=== PATIENT | female | born 1985 | race Caucasian/White ===

== ENCOUNTER 2016-05-15 14:17 | Emergency (ER) | payer OTHER ==
[2016-05-15] MEDS ORDERED: NS 0.9% 1000 ML* 2,500 ML IV ONE (15:04)
[2016-05-15] MEDS ORDERED: Ketorolac INJ* 30 MG/ML 1 ML VIAL IV PUSH ONE (15:12)
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
[2016-05-15] MEDS ORDERED: clonazePAM TAB(*) 1 MG PO ONE (15:40)
[2016-05-15 15:45] LABS: Hematocrit 41 % (35-47); Mean Corpuscular HGB Conc 34 g/dl (31-36); Mean Corpuscular Hemoglobin 30 pg (27-31); Mean Corpuscular Volume 87 fL (80-97); Mean Platelet Volume 7 um3 (7.4-10.4); Red Blood Count 4.66 10^6/ul (4.0-5.4); Red Cell Distribution Width 13 % (10.5-15); White Blood Count 12.6 10^3/ul (3.5-10.8)
--- NOTE | 2016-05-15 15:53 | RAD ---
HISTORY: Cough COMPARISONS: February 13, 2015 VIEWS: 2: Frontal dual-energy and lateral views of the chest. FINDINGS: CARDIOMEDIASTINAL SILHOUETTE: The cardiomediastinal silhouette is normal. PAUL: The paul are normal. PLEURA: The costophrenic angles are sharp. No pleural abnormalities are noted. LUNG PARENCHYMA: The lungs are clear. ABDOMEN: The upper abdomen is clear. There is no subphrenic gas. BONES AND SOFT TISSUES: No bone or soft tissue abnormalities are noted. OTHER: None. IMPRESSION: NO ACTIVE CARDIOPULMONARY DISEASE.
[2016-05-15] MEDS ORDERED: Clindamycin 600 MG IVPREMIX(* 600 MG/50 ML SDV IV ONE (15:54)
[2016-05-15] MEDS ORDERED: Bacitracin OINTMENT* 1 TUBE TOPICAL ONE (15:55)
[2016-05-15 15:58] LABS: ALT 11 U/L (7-52); AST 12 U/L (13-39); Albumin 4.7 g/dL (3.2-5.2); Alkaline Phosphatase 84 U/L (34-104); Anion Gap 9 mmol/L (2-11); BUN/Creatinine Ratio 14.6 (8-20); Blood Urea Nitrogen 12 mg/dL (6-24); CO2 Carbon Dioxide 27 mmol/L (22-32); Calcium 9.6 mg/dL (8.6-10.3); Chloride 104 mmol/L (101-111); EGFR Non-African American 82.4 (>60); Globulin 3.6 g/dL (2-4); Glucose 89 mg/dL (70-100); Potassium 3.2 mmol/L (3.5-5.0); Sodium 140 mmol/L (133-145); Total Protein 8.3 g/dL (6.4-8.9)
[2016-05-15] MEDS ORDERED: clonazePAM TAB(*) 0.5 MG PO ONE (16:30)
[2016-05-15] MEDS ORDERED: oxyCODONE/Acetamin 5/325 MG* TAB PO ONE ×2 (17:17→18:39)
[2016-05-15] MEDS ORDERED: oxyCODONE/Acetamin 5/325 MG* TAB ONE (18:41)
[2016-05-15 22:10] VITALS: BP 118/79
== END 2016-05-15 18:44 | disposition home or self-care (01) ==
LOC: ED 14:17
DX: T22.012A Burn of unspecified degree of left forearm, initial encounter (principal); R19.7 Diarrhea, unspecified; R10.13 Epigastric pain; F31.9 Bipolar disorder, unspecified; X10.2XXA Contact with fats and cooking oils, initial encounter; Y93.G3 Activity, cooking and baking; Y92.9 Unspecified place or not applicable; F17.210 Nicotine dependence, cigarettes, uncomplicated
CPT/HCPCS: 36415; 71020; 80053; 83605; 84702; 85025; 87040; 87070; 87205; 87502; A9270-GY; J1885

== ENCOUNTER 2016-06-08 09:34 | Observation (INO) | payer OTHER ==
[2016-06-08] MEDS ORDERED: Ondansetron ODT TAB* 4 MG PO ONE (11:12)
[2016-06-08] MEDS ORDERED: NS 0.9% 1000 ML* 1,000 ML IV ONE ×2 (11:12→14:42)
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
--- NOTE | 2016-06-08 11:47 | RAD ---
HISTORY: Fall, head injury, contusion COMPARISONS: October 17, 2015 TECHNIQUE: Multiple contiguous axial CT scans were obtained of the head without intravenous contrast. FINDINGS: HEMORRHAGE/INFARCT: There is no hemorrhage or acute infarct. MASSES/SHIFT: There is no mass or shift. EXTRA-AXIAL SPACES: There are no extra-axial fluid collections. SULCI AND VENTRICLES: The sulci and ventricles are normal in size and position for the patient's stated age. CEREBRUM: There are no focal parenchymal abnormalities. BRAINSTEM: There are no focal parenchymal abnormalities. CEREBELLUM: There are no focal parenchymal abnormalities. VESSELS: The vessels are grossly normal. PARANASAL SINUSES: The paranasal sinuses are clear. ORBITS: The orbits are unremarkable. BONES AND SOFT TISSUE: No bone or soft tissue abnormalities are noted. OTHER: None IMPRESSION: NO ACUTE INTRACRANIAL PATHOLOGY.
[2016-06-08 11:54] LABS: Urine Bacteria Absent (Absent); Urine Bilirubin Negative (Negative); Urine Glucose Negative (Negative); Urine Nitrite Negative (Negative)
[2016-06-08 12:03] LABS: Benzodiazepine Urine Screen Presumptive Positive (None Detect)
[2016-06-08] MEDS ORDERED: Ketorolac INJ* 30 MG/ML 1 ML VIAL IV PUSH ONE ×2 (12:42→19:41)
[2016-06-08 13:08] LABS: Hematocrit 40 % (35-47); Hemoglobin 13.7 g/dl (12.0-16.0); Mean Corpuscular HGB Conc 35 g/dl (31-36); Mean Corpuscular Hemoglobin 31 pg (27-31); Mean Corpuscular Volume 89 fL (80-97); Mean Platelet Volume 8 um3 (7.4-10.4); Red Blood Count 4.47 10^6/ul (4.0-5.4); Red Cell Distribution Width 13 % (10.5-15); White Blood Count 9.1 10^3/ul (3.5-10.8)
[2016-06-08 13:30] LABS: Alcohol < 10 mg/dL (<10)
[2016-06-08 13:38] LABS: Albumin 4.3 g/dL (3.2-5.2); BUN/Creatinine Ratio 12.8 (8-20); Calcium 9.3 mg/dL (8.6-10.3); EGFR African American 112.3 (>60); EGFR Non-African American 87.3 (>60); Magnesium 2.4 mg/dL (1.9-2.7); Potassium 3.9 mmol/L (3.5-5.0); Total Bilirubin 0.6 mg/dL (0.2-1.0); Total Protein 7.3 g/dL (6.4-8.9)
[2016-06-08] MEDS ORDERED: Acetaminophen TAB* 325 MG PO ONE (15:38)
[2016-06-08] MEDS ORDERED: Acetaminophen TAB* 325 MG PO PRN (16:20)
[2016-06-08] MEDS ORDERED: HYDROmorphone* 1 MG/ML 1 ML SYR IV SLOW PU ONE (16:24)
[2016-06-08] MEDS ORDERED: NS 0.9% 1000 ML* 1,000 ML IV SCH (16:30)
[2016-06-08] MEDS: Gabapentin CAP(*) 300 MG PO SCH ×2 (16:37→21:00)
[2016-06-08] MEDS: Amphetamine/Dextroamph ER(NF) 10 MG CAP.ER PO SCH (17:00)
[2016-06-08] MEDS: clonazePAM TAB(*) 1 MG PO SCH ×2 (17:00→20:51)
[2016-06-08] MEDS ORDERED: clonazePAM TAB(*) 1 MG ONE (17:00)
[2016-06-08] MEDS ORDERED: LORazepam INJ* 2 MG/ML 1 ML VIAL IV PUSH ONE (18:12)
[2016-06-08] MEDS: FLUoxetine CAP* 10 MG PO SCH (20:15)
[2016-06-08] MEDS: oxyCODONE/Acetamin 5/325 MG* TAB PO PRN (22:17)
[2016-06-08] MEDS ORDERED: Zolpidem TAB* 10 MG PO PRN (23:34)
[2016-06-08] MEDS ORDERED: clonazePAM TAB(*) 1 MG PO ONE (23:35)
[2016-06-09] MEDS: Bacitracin OINTMENT* 1 TUBE TOPICAL SCH ×2 (00:27→08:29)
[2016-06-09] MEDS: oxyCODONE/Acetamin 5/325 MG* TAB PO PRN ×3 (02:14→10:17)
[2016-06-09] MEDS: LORazepam INJ* 2 MG/ML 1 ML VIAL IV PUSH PRN ×3 (02:29→10:18)
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
[2016-06-09 04:33] LABS: Hematocrit 36 % (35-47); Hemoglobin 12.3 g/dl (12.0-16.0); Mean Corpuscular HGB Conc 34 g/dl (31-36); Mean Corpuscular Hemoglobin 30 pg (27-31); Mean Corpuscular Volume 89 fL (80-97); Mean Platelet Volume 8 um3 (7.4-10.4); Red Blood Count 4.07 10^6/ul (4.0-5.4); Red Cell Distribution Width 13 % (10.5-15); White Blood Count 10.1 10^3/ul (3.5-10.8)
[2016-06-09 04:47] LABS: BUN/Creatinine Ratio 12.3 (8-20); Calcium 8.1 mg/dL (8.6-10.3); EGFR African American 107.5 (>60); EGFR Non-African American 83.6 (>60); Potassium 3.9 mmol/L (3.5-5.0)
[2016-06-09] MEDS: Gabapentin CAP(*) 300 MG PO SCH (08:21)
[2016-06-09] MEDS: clonazePAM TAB(*) 1 MG PO SCH (08:22)
[2016-06-09] MEDS: FLUoxetine CAP* 10 MG PO SCH (08:23)
[2016-06-09] MEDS: Amphetamine/Dextroamph ER(NF) 10 MG CAP.ER PO SCH (08:24)
[2016-06-09 09:05] VITALS: BP 110/57
--- NOTE | 2016-06-09 10:40 | ECHO ---
Patient: SYDNEY SAMAYOA [facility] Rec#: [id number] : 1985 Date: 06/09/2016 Age: 31y Height: 157.48 cm / 62.0 in Weight: 81.65 kg / 180.0 lbs Sex: F BSA: 1.83 Room#: 431 Admit Date#: 06/08/2016 Type: Inpatient Referring: Kyler Mendoza NP Reading: Lopez Grimm MD Hospice Chaplain: Comfort Lizama RDCS,RDMS CC: Aries Lawson MD Transthoracic Echocardiogram Indication: Sycope BP: 106/51 HR: 59 Rhythm: Bradycardia Indications Syncope Findings History: Smoker, former drug use. Technical Comments: The study quality is good. Left Ventricle: The left ventricular chamber size is normal. There is no left ventricular hypertrophy. Global left ventricular wall motion and contractility are within normal limits. The estimated ejection fraction is 55-60%. Normal left ventricular diastolic filling is observed. Left Atrium: The left atrial chamber size is normal. Right Ventricle: The right ventricular chamber size and systolic function are within normal limits. Right Atrium: The right atrial cavity size is normal. Aortic Valve: The aortic valve is trileaflet. There is no evidence of aortic valve thickening. There is a trace of aortic regurgitation. There is no evidence of aortic stenosis. Mitral Valve: The mitral valve leaflets appear normal. There is a trace of mitral regurgitation. There is no evidence of mitral stenosis. Tricuspid Valve: The tricuspid valve leaflets are normal. There is trace tricuspid regurgitation. Unable to estimate the right ventricular systolic pressure. Pulmonic Valve: There is no evidence of pulmonic valve thickening. There is trace to mild pulmonic regurgitation. Pericardium: There is no significant pericardial effusion. Aorta: The aortic root appears normal. There is no dilatation of the aortic arch. Pulmonary Artery: The main pulmonary artery is not well visualized. Venous: The inferior vena cava appears normal in size. There is a greater than 50% respiratory change in the inferior vena cava dimension. Conclusions Global left ventricular wall motion and contractility are within normal limits. The estimated ejection fraction is 55-60%. Normal left ventricular diastolic filling is observed. No significant valvular disease: There is a trace of mitral regurgitation. There is trace tricuspid regurgitation. There is trace to mild pulmonic regurgitation. No reports of prior studies offered for comparson. Measurements Name Value Normal Range RVIDd (AP) 2D 2.8 cm (0.9 - 2.6) RVDdMajor (2D) 3 cm (2.2 - 4.4) RAd ISD 4CH 4.5 cm (3.4 - 4.9) RA (A4C)W 3.8 cm (2.9 - 4.6) IVSd (2D) 1 cm (0.6 - 1) LVPWd (2D) 1 cm (0.6 - 1) LVIDd (2D) 4.4 cm (3.6 - 5.4) LVIDs (2D) 3.1 cm - LV FS (2D) 31 % (25 - 45) Aortic Annulus 2.1 cm (1.4 - 2.6) Ao root diameter (2D) 2.7 cm (2.1 - 3.5) Ascending Ao 2.9 cm (2.1 - 3.4) Aortic arch 2.5 cm (1.8 - 3.4) LA dimension (AP) 2D 3.7 cm (2.3 - 3.8) LAd ISD 4CH 4.8 cm (2.9 - 5.3) LA ISD 4CH W 4.4 cm (2.5 - 4.5) Name Value Normal Range LA ESV SP 4CH (A/L) 65.49 ml - LA ESV SP 2CH (A/L) 56.74 ml - LA ESV BP (A/L) 61.37 ml - LA ESV BP (A/L) index 33.5 ml/m2 - LA ESV SP 4CH (MOD) 60.3 ml - LA ESV SP 2CH (MOD) 54.19 ml - Name Value Normal Range MV E-wave Vmax 1 m/sec - MV deceleration time 200 msec - MV A-wave Vmax 0.4 m/sec - MV E:A ratio 2.3 ratio - P. vein S-wave Vmax 0.5 m/sec - P. vein D-wave Vmax 0.5 m/sec - P. vein A-wave duration 111 msec - LV lateral e' Vmax 0.14 m/sec - LV E:e' lateral ratio 7 ratio - Name Value Normal Range AV Vmax 1.6 m/sec - AV VTI 32.7 cm - AV peak gradient 10 mmHg - AV mean gradient 4.7 mmHg - LVOT Vmax 1.3 m/sec - LVOT VTI 29 cm - LVOT peak gradient 7 mmHg - LVOT mean gradient 3.1 mmHg - DUONG Vmax 1.2 m/sec - Name Value Normal Range RAP 8 mmHg - IVC diameter 1.6 cm - Name Value Normal Range PV Vmax 0.7 m/sec - PV peak gradient 2 mmHg -
[2016-06-09] MEDS ORDERED: HYDROmorphone* 1 MG/ML 1 ML SYR IV SLOW PU ONE ×2 (11:05→12:42)
--- NOTE | 2016-06-10 02:48 | DS ---
DISCHARGE SUMMARY: DATE OF ADMISSION: 06/08/16 DATE OF DISCHARGE: 06/09/16 PRIMARY CARE PROVIDER: Aries Lawson MD DISCHARGING PROVIDER: CLARKE Whitten SUPERVISING PHYSICIAN: Jolanta Bedoya MD* (dictated by CLARKE Whitten) PRIMARY DISCHARGE DIAGNOSES: 1. Syncope. 2. Closed head injury with postconcussive syndrome. 3. Prolonged QT interval. SECONDARY DISCHARGE DIAGNOSES: 1. Bipolar disorder. 2. Anxiety and depression. 3. Posttraumatic stress disorder. DISCHARGE MEDICATIONS: 1. Adderall 30 mg 1 capsule p.o. daily. 2. Fluoxetine 20 mg p.o. daily. 3. Gabapentin 600 mg p.o. t.i.d. 4. Loperamide 2 mg p.o. daily as needed for diarrhea. 5. Sudafed 30 mg p.o. q.6 hours as needed for congestion. 6. Klonopin 2 mg p.o. 3 times daily. MEDICATION CHANGES: 1. Stop clonidine. 2. Stop Seroquel. HOSPITAL IMAGIN. CT of the brain shows no acute process. 2. Echocardiogram is essentially within normal limits. Ejection fraction estimated at 55% to 60% with no significant valvular process. 3. EKG shows sinus rhythm initially with QTc of 531 milliseconds. Repeat EKG morning of discharge showed improvement at 485 milliseconds. HOSPITAL COURSE: This is a 31-year-old female with an extensive psychiatric history including bipolar disorder, anxiety, and depression as well as a history of substance abuse who has been reportedly clean for several years who presented to the emergency department after a fall which resulted due to a syncopal episode. The syncope occurred nearly 2 days prior to the time that she came to the emergency department, but she had been having continued headaches and some confusion since the time of her injury which is what concerned her to the point that she sought evaluation in the emergency department. The patient reported that she had been started on both clonidine and Seroquel by her psychiatrist and the dose of the clonidine had been increased to 0.2 mg 3 times daily. The patient had been having dizzy episodes and at one point, she stood up, remembers feeling lightheaded and woke up on the floor. She sustained a superficial abrasion to her forehead. Since that time, she has been having difficulty with headaches and some confusion. No further syncopal episode. She stopped taking her clonidine and Seroquel at that time. When she reached the emergency department, her initial EKG showed a sinus rhythm , but a prolonged QTc measured at [address] of her brain was completed, which was unremarkable and her initial labs were benign. The patient was subsequently admitted to an observation state with continued telemetry monitoring and an echocardiogram. Telemetry monitoring overnight demonstrated a sinus rhythm with rate in the 60s and 70s primarily. No dysrhythmias. Repeat EKG the following morning showed improvement of her QTc to 485 milliseconds. Echocardiogram was completed, which showed no congenital heart disease. Orthostatic vital signs were also completed, which were within normal limits. The patient was complaining of continued headache and some confusion at the time of discharge. I explained the patient that her symptoms are likely due to a postconcussive syndrome and she will likely have headaches, some dizziness, possible mood swings, and intermittent nausea for up to several weeks after her concussion. She is advised to limit activities that would expose her to recurrent head injury and if at all possible engage in a period of cognitive rest. The patient is being discharged to home, where she lives with her 2 children. Recommend not restarting her clonidine and Seroquel and follow up closely with her psychiatrist regarding this hospitalization. CLARKE WHITTEN CC: Dr. Lawson* [id number]/[facility] #: [id number] EDDY
== END 2016-06-09 13:30 | disposition home or self-care (01) ==
LOC: ED 09:34 → MEDTELE 16:18
PROVIDERS: ADMIT Internal Medicine; ATTEND Internal Medicine
DX: R55 Syncope and collapse (principal); S09.90XA Unspecified injury of head, initial encounter; W18.39XA Other fall on same level, initial encounter; Y92.9 Unspecified place or not applicable; F07.81 Postconcussional syndrome; G44.309 Post-traumatic headache, unspecified, not intractable; I45.81 Long QT syndrome; F31.9 Bipolar disorder, unspecified; F41.9 Anxiety disorder, unspecified; F43.10 Post-traumatic stress disorder, unspecified; R00.1 Bradycardia, unspecified; Z79.899 Other long term (current) drug therapy; F17.210 Nicotine dependence, cigarettes, uncomplicated
CPT/HCPCS: 36415; 70450; 80048; 80053; 80307; 80320; 81003; 81015; 83605; 83735; 84443; 84484; 85025; 93005; 93306; 94760; 96361; 96374; 96375; 96376; 99284; A9270-GY; G0378; G0480; J1170; J1885; J2060

== ENCOUNTER 2016-06-26 15:58 | Emergency (ER) | payer OTHER ==
[2016-06-26 17:01] VITALS: BP 129/69
== END 2016-06-26 17:28 | disposition left against medical advice (07) ==
LOC: UCEAST 15:58
DX: S69.90XA Unspecified injury of unspecified wrist, hand and finger(s), initial encounter (principal); T14.90 Injury, unspecified; X58.XXXA Exposure to other specified factors, initial encounter; Y93.9 Activity, unspecified; Y92.9 Unspecified place or not applicable; Z53.21 Procedure and treatment not carried out due to patient leaving prior to being seen by health care provider

== ENCOUNTER 2016-06-28 16:18 | Emergency (ER) | payer OTHER ==
[2016-06-28 17:12] VITALS: BP 120/75
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
--- NOTE | 2016-06-28 18:19 | RAD ---
Indication: RIGHT hand bruising and pain following injury 2 days ago. Pain at the fifth metacarpal level. Decrease in swelling. Comparison: None. Technique: AP and lateral views RIGHT hand REPORT AND IMPRESSION: Negative for fracture or articular malalignment. Soft tissue swelling over the dorsum of the hand most prominent at the level of the metacarpal phalangeal joints.
== END 2016-06-28 18:30 | disposition home or self-care (01) ==
LOC: UCEAST 16:18
DX: S60.221A Contusion of right hand, initial encounter (principal); S40.022A Contusion of left upper arm, initial encounter; S30.1XXA Contusion of abdominal wall, initial encounter; Y04.2XXA Assault by strike against or bumped into by another person, initial encounter; Y93.9 Activity, unspecified; Y92.9 Unspecified place or not applicable; G43.909 Migraine, unspecified, not intractable, without status migrainosus; F41.8 Other specified anxiety disorders; F31.9 Bipolar disorder, unspecified; E66.9 Obesity, unspecified; F17.210 Nicotine dependence, cigarettes, uncomplicated
CPT/HCPCS: 99211; G0463

== ENCOUNTER 2016-11-23 18:11 | Emergency (ER) | payer OTHER ==
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
[2016-11-23 18:49] VITALS: BP 103/59
[2016-11-23] MEDS ORDERED: Ondansetron ODT TAB* 4 MG PO ONE (20:01)
== END 2016-11-23 20:24 | disposition home or self-care (01) ==
LOC: UCCORT 18:11
DX: S00.81XA Abrasion of other part of head, initial encounter (principal); S01.21XA Laceration without foreign body of nose, initial encounter; X58.XXXA Exposure to other specified factors, initial encounter; Y93.9 Activity, unspecified; Y92.9 Unspecified place or not applicable; R11.2 Nausea with vomiting, unspecified; F17.210 Nicotine dependence, cigarettes, uncomplicated
CPT/HCPCS: 99212; A9270-GY; G0463

== ENCOUNTER 2017-10-07 19:29 | Emergency (ER) | payer OTHER ==
[2017-10-07 20:12] VITALS: BP 124/80
--- NOTE | 2017-10-07 21:14 | UC ---
Ear Complaint HPI - HPI Summary HPI Summary: 32 year old female presents with onset of left ear pain this morning after cleaning her ears with a Q-tip. Reports has had fever several days ago however is currently being treated for UTI and colitis with Bactrim and Cipro. Denies hearing loss, ear drainage, nasal congestion/drainage, sore throat, cough. - History of Current Complaint Chief Complaint: UCEar Stated Complaint: FEVER, EARS Time Seen by Provider: 10/07/17 20:35 Hx Obtained From: Patient Hx Last Menstrual Period: ended 10/05/17 ?: No Onset/Duration: Sudden Onset Severity Currently: Mild Pain Intensity: 6 Aggravating Factors: Nothing Alleviating Factors: Nothing Associated Signs/Symptoms: Negative: Discharge, Hearing Loss, Foreign Body Sensation, URI Symptoms - Allergies/Home Medications Allergies/Adverse Reactions: Allergies Allergy/AdvReac Type Severity Reaction Status Date / Time No Known Allergies Allergy Verified 10/07/17 20:02 Home Medications: Home Medications Amphetamine MIXED SALTS TAB* [Adderall TAB*] 30 mg QAM 10/07/17 [History Confirmed 10/07/17] Ciprofloxacin TAB* [Cipro 500 MG TAB*] 1 tab DAILY 10/07/17 [History Confirmed 10/07/17] Cyclobenzaprine TAB* [Flexeril 10 MG TAB*] 5 mg TID PRN 10/07/17 [History Confirmed 10/07/17] Dextroamphetamine/Amphetamine [Dextroamp-Amphetamin 30 mg Tab] 1 tab TID [History Confirmed 10/07/17] Ethinyl Estradiol/Drospirenone [Loryna 3 mg-0.02 mg Tablet] 1 tab DAILY [History Confirmed 10/07/17] Gabapentin CAP(*) [Neurontin 400 mg CAP(*)] 800 mg TID 10/07/17 [History Confirmed 10/07/17] Metoclopramide TAB* [Reglan TAB*] 1 tab BID 10/07/17 [History Confirmed 10/07/17 ] Omeprazole CAP* [Prilosec CAP* 20 MG] 1 cap DAILY 10/07/17 [History Confirmed ] QUEtiapine XR TAB* [Seroquel Xr 300 MG TAB*] 300 mg QPM 10/07/17 [History Confirmed 10/07/17] Spironolactone TAB* [Aldactone TAB 25 MG*] 2 tab BID 10/07/17 [History Confirmed 10/07/17] Sulfamethox/Trimethoprim DS* [Bactrim DS 800/160 TAB*] 1 tab BID 10/07/17 [ History Confirmed 10/07/17] Vortioxetine Hydrobromide [Trintellix] 1 tab DAILY 10/07/17 [History Confirmed 10/07/17] metFORMIN* [Glucophage 500 MG TAB *] 2 tab BID 10/07/17 [History Confirmed 10/07] metroNIDAZOLE * 1 tab BID 10/07/17 [History Confirmed 10/07/17] PMH/Surg Hx/FS Hx/Imm Hx Endocrine History: Other Other Endocrine History: PCOS GI/ History: Other Other GI/ History: colitis Psychological History: Depression, Other Other Psychological History: ADHD Other History Of: Negative For: Anticoagulant Therapy - Surgical History Surgical History: Yes Surgery Procedure, Year, and Place: 2007 tubal. tonsillectomy - Family History Known Family History: Negative: Cardiac Disease Family History: NON CONTRIBUTORY - Social History Alcohol Use: Occasionally Substance Use Type: None Substance Use Comment - Amount & Last Used: denies Smoking Status (MU): Heavy Every Day Tobacco Smoker Type: Cigarettes Amount Used/How Often: 1 pack every 2 days Household Exposure Type: Cigarettes - Immunization History Most Recent Influenza Vaccination: no Most Recent Tetanus Shot: UTD Review of Systems Constitutional: Fever Skin: Negative Eyes: Negative ENT: Ear Ache Respiratory: Negative Cardiovascular: Negative Is Patient Immunocompromised?: No All Other Systems Reviewed And Are Negative: Yes Physical Exam Triage Information Reviewed: Yes Appearance: Well-Appearing, No Pain Distress, Well-Nourished Vital Signs: Initial Vital Signs Temp 97.2 F 10/07/17 20:07 Pulse 98 10/07/17 20:07 Resp 20 10/07/17 20:07 BP 124/80 10/07/17 20:07 Pulse Ox 99 10/07/17 20:07 Vital Signs Reviewed: Yes Eyes: Positive: Conjunctiva Clear ENT: Positive: Hearing grossly normal, Pharynx normal, TMs normal, Uvula midline , Other - erythema and mild edema to superior aspect of left ear canal. Negative: Nasal congestion, Nasal drainage Neck: Positive: Supple, Nontender, No Lymphadenopathy Respiratory: Positive: No respiratory distress Skin Exam: Normal Ear Complaint Course/Dx - Course Course Of Treatment: 32 year old female with onset of left ear pain after cleaning ears with Q-tip. Exam revealed mild erythema and edema to the superior aspect of the left ear canal with a normal TM. This is likely a traumatic otits externa. Will treat with hydrocortisone-acetic acid otic drops x 7 days. - Differential Dx/Diagnosis Differential Diagnosis/HQI/PQRI: Cerumen Impaction, Otitis Externa, Otitis Media , Perforated TM Provider Diagnoses: Mild left otitis externa Discharge - Sign-Out/Discharge Documenting (check all that apply): Patient Departure - Discharge Plan Condition: Stable Disposition: HOME Prescriptions: Hydrocortisone/Acetic Acid [Hydrocortison-Acetic Acid Soln] 3 drop OT Q6HR #1 bottle Patient Education Materials: Otitis Externa (DC) Referrals: Vero Andujar MD [Primary Care Provider] - 7 Days (if no improvement) - Billing Disposition and Condition Condition: STABLE Disposition: Home
== END 2017-10-07 21:34 | disposition home or self-care (01) ==
LOC: UCCORT 19:29
DX: H60.92 Unspecified otitis externa, left ear (principal); F32.9 Major depressive disorder, single episode, unspecified; F17.210 Nicotine dependence, cigarettes, uncomplicated
CPT/HCPCS: 99212; G0463

== ENCOUNTER 2017-12-14 18:53 | Emergency (ER) | payer OTHER ==
--- NOTE | 2017-12-14 19:21 | UC ---
Abdominal Pain Female HPI - HPI Summary HPI Summary: Patient presents to urgent care with 36 hours progressive right lower quadrant pain. Patient states last dose of Motrin was approximately 2:30 or 3:00 today. Patient states just prior to arrival she was helping a friend clean. Patient she bent over and felt sudden pain in her right lower quadrant. Pain worse with movement, palpation, walking. Pt was dropped at by family. Patient reports nausea and no vomiting currently but vomited this morning. Patient reports a fever to 101.2 yesterday. Patient states has chronic diarrhea. No blood no blood. Patient denies dysuria or hematuria. Patient states she status post a tubal ligation. Patient ended her normal menses yesterday. Pt states when pain got "severe" she developed chest pain and left arm tingling. Pt states this happens when she has a panic attack. Sx improved currently. Pt with a h/o ovarian cysts. no other intra-abdominal surgeries. 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 tonsillectomy - Family History Known Family History: Negative: Cardiac Disease Family History: NON CONTRIBUTORY - Social History Lives: With Family Alcohol Use: Occasionally Substance Use Type: None Substance Use Comment - Amount & Last Used: denies Smoking Status (MU): Heavy Every Day Tobacco Smoker Type: Cigarettes Amount Used/How Often: 1 pack every 2 days Household Exposure Type: Cigarettes - Immunization History Most Recent Influenza Vaccination: no Most Recent Tetanus Shot: UTD Review of Systems Skin: Negative Cardiovascular: Chest Pain - resolved Gastrointestinal: Abdominal Pain, Vomiting, Diarrhea - chronic diarrhea, Nausea Neurological: Negative All Other Systems Reviewed And Are Negative: Yes Physical Exam - Summary Physical Exam Summary: Vital Signs Reviewed: Yes A+Ox3, obvious discomfort, tearful Eyes: injected, tearful. , UMM. EOM intact and full ENT: Hearing grossly normal TM x 2 clear, mmoist, uvula midline, no exudate, no erythema Neck: Positive: Supple Respiratory: Positive: No respiratory distress, No accessory muscle use + CTA throughout no w/r Cardiovascular: RRR, tachycardic, nl s1, s2 no m/r CBT <2 sec abd soft decreased BS + TTP RLQ>RUQ no guarding Musculoskeletal Exam: MORTON x 4 without difficulty Strength Intact, ROM Intact Neurological: Positive: Alert, + sensation throughout Psychological: Positive: Normal Response To Family Skin: Positive: no rash, no ecchymosis Triage Information Reviewed: Yes Vital Signs: Initial Vital Signs Temp 97.8 F 12/14/17 18:58 Pulse 109 12/14/17 18:58 Resp 29 12/14/17 18:58 BP 151/88 12/14/17 18:58 Pulse Ox 99 12/14/17 18:58 Diagnostics - EKG EKG Comments: 19:03 12/14/2017 Sinus tachy, [address], T wave changes Cardiac Rhythm: Sinus: Normal - tachy Ectopy: None ST Segment: Normal Abd Pain Female Course/Dx - Course Course Of Treatment: Patient presents with 36 hours progressive left lower quadrant pain. Patient states she had a fever yesterday and vomiting this morning. Patient states today pain has continued throughout the day. This evening patient had sudden right lower quadrant pain. Patient states she felt a little panicky denies chest pain or left arm tingling. These have since subsided. Patient has not taken anything for pain since 3:00. Patient does have a history of substance abuse, treated with suboxone, and is currently currently opiate free. EKG show sinus tach. Pt in obvious discomfort - holding RLQ. will give toradol, zofran, IVF. [place] [facility] [place] to Cooper Choi NP. Report given to [facility]. hypertensive - obvious discomfort - Differential Dx/Diagnosis Provider Diagnoses: RLQ pain. chest pain -resolved. nausea - Physician Notification/Consults Discussed Care of Patient With: Cooper Shriley Time Discussed With Above Provider: 19:25 Discharge - Sign-Out/Discharge Documenting (check all that apply): Patient Departure All imaging exams completed and their final reports reviewed: No Studies - Discharge Plan Condition: Fair Disposition: TRANS HIGHER LVL OF CARE FAC Referrals: Vero Andujar MD [Primary Care Provider] - - Billing Disposition and Condition Condition: FAIR Disposition: Trans Higher Lvl of Care Fac
[2017-12-14] MEDS ORDERED: NS 0.9% 1000 ML* 1,000 ML IV ONE (19:26)
[2017-12-14] MEDS ORDERED: Ketorolac INJ* 30 MG/ML 1 ML VIAL IV PUSH ONE (19:27)
[2017-12-14] MEDS ORDERED: Ondansetron INJ* 2 MG/ML VIAL IV ONE (19:27)
[2017-12-14 19:51] VITALS: BP 155/104
== END 2017-12-14 19:50 | disposition short-term general hospital (02) ==
LOC: UCCORT 18:53
DX: R10.31 Right lower quadrant pain (principal); R11.0 Nausea; R00.0 Tachycardia, unspecified; K52.9 Noninfective gastroenteritis and colitis, unspecified; F11.11 Opioid abuse, in remission; Z87.891 Personal history of nicotine dependence
CPT/HCPCS: 93005; 96374; 96375; 99213; G0463; J1885; J2405

== ENCOUNTER 2017-12-14 20:31 | Emergency (ER) | payer OTHER ==
[2017-12-14] MEDS ORDERED: Metoclopramide IV* 5 MG/ML 2 ML VIAL IV ONE (20:59)
[2017-12-14] MEDS ORDERED: Acetaminophen TAB* 325 MG PO ONE (20:59)
[2017-12-14] MEDS ORDERED: fentaNYL* 50 MCG/ML 2 ML VIAL (100 MCG VIAL) IV ONE (20:59)
[2017-12-14] MEDS ORDERED: NS 0.9% 1000 ML* 1,000 ML IV ONE (21:03)
[2017-12-14] MEDS ORDERED: NS 0.9% 1000 ML* 2,000 ML IV ONE (21:03)
[2017-12-14 21:36] LABS: Urine Appearance Clear; Urine Blood 1+ (Negative); Urine Color Yellow; Urine Ketones Negative (Negative); Urine Protein Negative (Negative); Urine Red Blood Cell Trace(0-2/hpf) (Absent); Urine Specific Gravity 1.008 (1.010-1.030); Urine Urobilinogen Negative (Negative); Urine White Blood Cell Trace(0-5/hpf) (Absent)
[2017-12-14 21:38] LABS: Hematocrit 39 % (35-47); Hemoglobin 13.3 g/dl (12.0-16.0); Mean Corpuscular HGB Conc 34 g/dl (31-36); Mean Corpuscular Hemoglobin 31 pg (27-31); Mean Corpuscular Volume 90 fL (80-97); Mean Platelet Volume 7.2 um3 (7.4-10.4); Platelet Count 346 10^3/ul (150-450); Red Blood Count 4.29 10^6/ul (4.00-5.40); Red Cell Distribution Width 13 % (10.5-15); White Blood Count 13.8 10^3/ul (3.5-10.8)
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
[2017-12-14 21:48] LABS: INR 1.04 (0.77-1.02)
[2017-12-14 21:56] LABS: EGFR Non-African American 75.4 (>60)
[2017-12-14 21:57] LABS: ABS Basophils 0.1 10^3/ul (0-0.2); ABS Eosinophils 0 10^3/ul (0-0.6); ABS Lymphocytes 5.3 10^3/ul (1.0-4.8); ABS Monocytes 0.9 10^3/ul (0-0.8); ABS Neutrophils 7.5 10^3/ul (1.5-7.7); ABS Nucleated RBC 0 10^3/ul; Eosinophil % 0.2 % (0-6); Lymphocyte % 38.3 % (25-47); Nucleated Red Blood Cells % 0
[2017-12-14] MEDS ORDERED: Iodixanol 320 (CONTRAST) 100 ML SDV IV ONE (22:31)
--- NOTE | 2017-12-14 23:04 | RAD ---
EXAM: US Pelvis, Transvaginal CLINICAL HISTORY: 32 years old, female; Pain; Pelvic pain; Patient HX: Right adnexal pain; Additional info: Ovarian cyst TECHNIQUE: Real-time transvaginal pelvic ultrasound (complete) with image documentation. Transvaginal imaging was used for better evaluation of the endometrium and adnexa. Duplex evaluation performed to exclude torsion. COMPARISON: TRANS US TRANSVAGINAL 07/03/2015 12:36 AM FINDINGS: Uterus/cervix: Uterus measures 9 x 4.4 x 5.5 cm. Endometrium 6 mm in thickness. Small nabothian cysts. No myometrial mass. Right ovary: No adnexal mass or current evidence for torsion with color flow and vascular forms documented. Right ovary measures 2.5 x 1.7 x 1.8 cm. Left ovary: Left ovary measures 3.3 x 1.7 x 1.6 cm. Free fluid: No free fluid. Bladder: Empty bladder which cannot be evaluated with this probe. IMPRESSION: No adnexal mass or current evidence for torsion with color flow and vascular waveforms documented. To contact [facility] with a general question: Operations Center - [phone] For direct physician to physician contact: Physician Hotline - [phone] [facility] ([facility] Facility ID #[id number])
[2017-12-14] MEDS ORDERED: fentaNYL* 50 MCG/ML 2 ML VIAL (100 MCG VIAL) IV SLOW PU ONE (23:33)
--- NOTE | 2017-12-14 23:52 | RAD ---
EXAM: CT Abdomen and Pelvis With Intravenous Contrast CLINICAL HISTORY: 32 years old, female; Pain; Abdominal pain; Generalized; Additional info: Abd pain TECHNIQUE: Axial computed tomography images of the abdomen and pelvis with intravenous contrast. All CT scans at this facility use at least one of these dose optimization techniques: automated exposure control; mA and/or kV adjustment per patient size (includes targeted exams where dose is matched to clinical indication); or iterative reconstruction. Coronal and sagittal reformatted images were created and reviewed. CONTRAST: 141 mL of VISI administered intravenously. COMPARISON: A/P W CT ABD/PEL W 07/07/2015 2:53 AM FINDINGS: Lung bases: Unremarkable. No mass. No consolidation. ABDOMEN: Liver: Unremarkable. No mass. Gallbladder and bile ducts: Unremarkable. No calcified stones. No ductal dilation. Pancreas: Unremarkable. No mass. No ductal dilation. Spleen: Unremarkable. No splenomegaly. Adrenals: Unremarkable. No mass. Kidneys and ureters: Unremarkable. No solid mass. No hydronephrosis. Stomach and bowel: Unremarkable. No obstruction. No mucosal thickening. PELVIS: Appendix: No findings to suggest acute appendicitis. Bladder: Unremarkable. No mass. Reproductive: Unremarkable as visualized. ABDOMEN and PELVIS: Intraperitoneal space: Unremarkable. No free air. No significant fluid collection. Bones/joints: No acute fracture. No dislocation. Soft tissues: Unremarkable. Vasculature: Unremarkable. No abdominal aortic aneurysm. Lymph nodes: Unremarkable. No enlarged lymph nodes. IMPRESSION: Normal abdomen and pelvis CT. To contact [facility] with a general question: [facility] - [phone] For direct physician to physician contact: Physician Hotline - [phone] [facility] ([facility] Facility ID #[id number])
[2017-12-15] MEDS ORDERED: Ondansetron ODT TAB* 4 MG SL PRN (00:24)
[2017-12-15] MEDS ORDERED: Ondansetron ODT TAB* 4 MG ONE (00:27)
[2017-12-15 00:32] VITALS: BP 125/78
--- NOTE | 2017-12-15 08:07 | RAD ---
HISTORY: abd pain COMPARISONS: None relevant VIEWS: Frontal supine and upright views of the abdomen. FINDINGS: BOWEL: There is a nonspecific bowel gas pattern, with nondilated small bowel gas noted. There is a large amount of stool within the ascending and transverse colon. CALCULI: There are no abnormal calculi. BONES AND SOFT TISSUES: There are no osseous abnormalities. OTHER FINDINGS: The lung bases are clear. There is no subphrenic gas. IMPRESSION: NONSPECIFIC BOWEL GAS PATTERN. LARGE AMOUNT OF STOOL WITHIN THE PROXIMAL COLON. R0
--- NOTE | 2017-12-15 08:08 | RAD ---
HISTORY: abd pain COMPARISONS: September 28, 2016 VIEWS: 3: frontal dual-energy view of the chest FINDINGS: CARDIOMEDIASTINAL SILHOUETTE: The cardiomediastinal silhouette is normal. PAUL: The paul are normal. PLEURA: The costophrenic angles are sharp. No pleural abnormalities are noted. LUNG PARENCHYMA: The lungs are clear. ABDOMEN: The upper abdomen is clear. There is no subphrenic gas. BONES AND SOFT TISSUES: No bone or soft tissue abnormalities are noted. OTHER: None. IMPRESSION: NO ACTIVE CARDIOPULMONARY DISEASE. R0
== END 2017-12-15 00:53 | disposition home or self-care (01) ==
LOC: ED 20:31
DX: R10.9 Unspecified abdominal pain (principal); M79.602 Pain in left arm; M54.5 Low back pain; F17.210 Nicotine dependence, cigarettes, uncomplicated
CPT/HCPCS: 36415; 71045; 74019; 74177; 76830; 80053; 81003; 81015; 82150; 83605; 83690; 83735; 84702; 85025; 85060; 85610; 85730; 86140; 86850; 86900; 86901; 87040; 87086; 96374; 96375; 99284; A9270-GY; J2765; J3010; Q9967

== ENCOUNTER 2018-03-25 10:42 | Emergency (ER) | payer OTHER ==
--- NOTE | 2018-03-25 12:34 | UC ---
UC General HPI - HPI Summary HPI Summary: pt states she was here about 3 weeks ago with cough, nausea and L ear pain. The ear "looked normal" but she was tx with Augmentin. The cough got better but ear pain continues. The L ear pain has worsened and feels plugged over the past week and is worsened by cough. The past 2 days, pt is having episodes of dizziness and spinning plus senses of off to her L side. She has associated N with occasional vomiting. She reports some relief if she remains completely still with eyes shut but not always. no hx head injury, fever, visual disturbances or focal deficits. - History of Current Complaint Chief Complaint: UCGeneralIllness Stated Complaint: LEFT EAR PAIN Time Seen by Provider: 03/25/18 12:28 Hx Obtained From: Patient Hx Last Menstrual Period: 03/2018 Pain Intensity: 8 Associated Signs & Symptoms: Negative: Headache - Allergy/Home Medications Allergies/Adverse Reactions: Allergies Allergy/AdvReac Type Severity Reaction Status Date / Time No Known Allergies Allergy Verified 03/25/18 12:21 PMH/Surg Hx/FS Hx/Imm Hx - Additional Past Medical History Additional PMH: pituitary tumor, celiac disease, PCOS, RLS, sleep disturbance. Other History Of: Negative For: Anticoagulant Therapy - Surgical History Surgical History: Yes Surgery Procedure, Year, and Place: 2008 tubal. tonsillectomy - Family History Known Family History: Negative: Cardiac Disease Family History: NON CONTRIBUTORY - Social History Alcohol Use: None Substance Use Type: None Substance Use Comment - Amount & Last Used: denies Smoking Status (MU): Heavy Every Day Tobacco Smoker Type: Cigarettes Amount Used/How Often: 1 pack every 2 days Household Exposure Type: Cigarettes - Immunization History Most Recent Influenza Vaccination: no Most Recent Tetanus Shot: UTD Vaccination Up to Date: Yes Review of Systems All Other Systems Reviewed And Are Negative: Yes Constitutional: Positive: Negative Skin: Positive: Negative Eyes: Negative: Blurred Vision, Diplopia ENT: Positive: Ear Ache - L Respiratory: Positive: Negative Cardiovascular: Positive: Negative Gastrointestinal: Positive: Vomiting, Nausea Genitourinary: Positive: Negative Motor: Negative: Weakness Neurovascular: Negative: Decreased Sensation Musculoskeletal: Positive: Negative Neurological: Negative: Headache, Weakness, Paresthesia, Numbness Psychological: Positive: Negative Physical Exam Triage Information Reviewed: Yes Appearance: Well-Appearing Vital Signs: Initial Vital Signs Temp 98.1 F 03/25/18 12:22 Pulse 115 03/25/18 12:22 Resp 20 03/25/18 12:22 BP 127/78 03/25/18 12:22 Pulse Ox 99 03/25/18 12:22 Vital Signs Reviewed: Yes Eyes: Positive: Other: - PERRL, EOMI, No nystagmus ENT: Positive: Pharynx normal, TMs normal, Other - Canals clear. No auricular adenopathy or mastoid tenderness.. Negative: Nasal congestion, Nasal drainage Neck: Positive: Supple, Nontender, No Lymphadenopathy, Other: - No carotid bruits Respiratory: Positive: Lungs clear, Normal breath sounds Cardiovascular: Positive: RRR, No Murmur. Negative: Tachycardia Abdomen Description: Positive: Nontender, No Organomegaly, Soft. Negative: Distended, Guarding Bowel Sounds: Positive: Present Musculoskeletal: Positive: ROM Intact Neurological: Positive: Other: - A&O x3. CN 2-12 grossly intatc. 5/5 strentgh, 2 + reflexes and sensatiopn intact x4. Negative rhomberg and pronator drift. Steay gait. Position changes and rapid turn of head to not reproduce dizziness. Psychological: Positive: Age Appropriate Behavior Skin Exam: Normal Diagnostics - Radiology No standard instances Radiology Interpretation Completed By: Radiologist - Negative unenhanced head CT. Course/Dx - Course Course Of Treatment: Pt c/o nausea upon lying back/flat for the CT. Pt feels improved with zofran. She declined meclizine here and will black pickler the prescxription on the way home. - Differential Dx - Multi-Symptom Differential Diagnoses: Other - Do not feel CVA. Not typical s/s's of pituitary tumor. No acute intracranial pathology on ct. No concern for mastoiditis. I think this is peripheral vertigo plus eustachian tube dysfunction given ear pain with pressure. will tx with meclizine and steroid plus ent f/u. - Diagnoses Provider Diagnosis: Dizziness, Otalgia, left ear Discharge - Sign-Out/Discharge Documenting (check all that apply): Patient Departure All imaging exams completed and their final reports reviewed: Yes - Discharge Plan Condition: Stable Disposition: HOME Prescriptions: Meclizine TAB* [Antivert 12.5 TAB*] 25 mg PO TID PRN #10 tab PRN Reason: Dizziness predniSONE [Prednisone 20 MG TAB] 40 mg PO DAILY 5 Days #10 tablet Patient Education Materials: Earache (ED), Dizziness (ED) Referrals: Vero Andujar MD [Primary Care Provider] - 5 Days Additional Instructions: GO TO ER FOR ANY WORSENING. - Billing Disposition and Condition Condition: STABLE Disposition: Home
[2018-03-25] MEDS ORDERED: Ondansetron ODT TAB* 4 MG PO ONE (12:51)
[2018-03-25 13:46] VITALS: BP 132/96
== END 2018-03-25 13:56 | disposition left against medical advice (07) ==
LOC: UCCORT 10:42
DX: H92.02 Otalgia, left ear (principal); R42 Dizziness and giddiness; R05 Cough; R11.2 Nausea with vomiting, unspecified; F17.210 Nicotine dependence, cigarettes, uncomplicated
CPT/HCPCS: 70450; 93005; 99212; A9270-GY; G0463

== ENCOUNTER 2018-09-23 15:05 | Emergency (ER) | payer OTHER ==
[2018-09-23 15:28] VITALS: BP 119/81
--- NOTE | 2018-09-23 15:51 | UC ---
General HPI - HPI Summary HPI Summary: pt states she saw her pcp 2 weeks ago for R ear pain and was tx with an oral and topical antibiotics plus tessalon perles for a cough. the ear pain is gone but the R ear remains plugged. pt is also c/o sharp rib pain from coughing, weakness and bodyaches. sometimes the cough makes her vomit. + wheezing and sob. no hx asthma. no cp, fever or chills. - History of Current Complaint Chief Complaint: UCGeneralIllness Stated Complaint: VOMITTING,RT SIDE PAIN,WEAKNESS Time Seen by Provider: 09/23/18 15:29 Hx Obtained From: Patient Hx Last Menstrual Period: Last week Onset/Duration: Gradual Onset Pain Intensity: 6 Associated Signs & Symptoms: Positive: Wheezing. Negative: Chest Pain, Fever, SOB - Allergy/Home Medications Allergies/Adverse Reactions: Allergies Allergy/AdvReac Type Severity Reaction Status Date / Time No Known Allergies Allergy Verified 09/23/18 15:28 Home Medications: Home Medications [place] Carbonate 450 mg PO QAM 09/23/18 [History Confirmed 09/23/18] PMH/Surg Hx/FS Hx/Imm Hx Previously Healthy: Yes Other History Of: Negative For: Anticoagulant Therapy - Surgical History Surgical History: Yes Surgery Procedure, Year, and Place: 2008 tubal. tonsillectomy - Family History Known Family History: Negative: Cardiac Disease Family History: NON CONTRIBUTORY - Social History Alcohol Use: None Substance Use Type: None Substance Use Comment - Amount & Last Used: denies Smoking Status (MU): Heavy Every Day Tobacco Smoker Type: Cigarettes Amount Used/How Often: 1 pack every 2 days Household Exposure Type: Cigarettes - Immunization History Most Recent Influenza Vaccination: no Most Recent Tetanus Shot: UTD Vaccination Up to Date: Yes Review of Systems All Other Systems Reviewed And Are Negative: Yes Constitutional: Positive: Fatigue Respiratory: Positive: Shortness Of Breath, Cough Neurological: Positive: Weakness Physical Exam Triage Information Reviewed: Yes Appearance: Well-Appearing Vital Signs: Initial Vital Signs Temp 97.6 F 09/23/18 15:21 Pulse 77 09/23/18 15:21 Resp 18 09/23/18 15:21 BP 119/81 09/23/18 15:21 Pulse Ox 98 09/23/18 15:21 Vital Signs Reviewed: Yes Eyes: Positive: Conjunctiva Clear ENT: Positive: Pharynx normal, TMs normal. Negative: Nasal congestion, Nasal drainage Neck: Positive: Supple, Nontender, No Lymphadenopathy Respiratory: Positive: Lungs clear, No respiratory distress. Negative: Crackles , Rhonchi, Wheezing Cardiovascular: Positive: RRR, No Murmur Abdomen Description: Positive: Nontender, No Organomegaly, Soft Bowel Sounds: Positive: Present Musculoskeletal: Positive: ROM Intact Neurological: Positive: Alert Psychological: Positive: Age Appropriate Behavior Skin Exam: Normal Diagnostics - Radiology No standard instances Radiology Interpretation Completed By: Radiologist - IMPRESSION: No active cardiopulmonary disease is noted. Course/Dx - Differential Dx - Multi-Symptom Differential Diagnoses: Other - No OM, OE or mastoiditis on exam. Will tx for eustachian tube dysfunction. CXR=nad - Diagnoses Provider Diagnosis: Eustachian tube dysfunction, Bronchitis Discharge - Sign-Out/Discharge Documenting (check all that apply): Patient Departure All imaging exams completed and their final reports reviewed: Yes - Discharge Plan Condition: Stable Disposition: HOME Prescriptions: Albuterol HFA INHALER* [Ventolin HFA Inhaler*] 2 puff INH Q6H #1 mdi predniSONE [Prednisone 20 MG TAB] 40 mg PO DAILY 5 Days #10 tablet Patient Education Materials: Earache (ED) Referrals: Vero Andujar MD [Primary Care Provider] - 7 Days - Billing Disposition and Condition Condition: STABLE Disposition: Home
== END 2018-09-23 16:16 | disposition home or self-care (01) ==
LOC: UCCORT 15:05
DX: H69.81 Other specified disorders of Eustachian tube, right ear (principal); J40 Bronchitis, not specified as acute or chronic; F17.210 Nicotine dependence, cigarettes, uncomplicated
CPT/HCPCS: 71046; 99212; G0463

== ENCOUNTER 2018-12-25 14:47 | Emergency (ER) | payer OTHER ==
[2018-12-25 15:39] VITALS: BP 117/73
--- NOTE | 2018-12-25 15:48 | UC ---
UC General HPI - HPI Summary HPI Summary: R rib pain after coughing for 2 wks. Feels cough has resolved but rib pain persists. Occasionally radiates to R back. patient also experiencing nausea and vomiting, occasional diarrhea. Of note pt also c/o hemorrhoids, chronic diarrhea, and chronic vomiting. She does have GI specialist on board but states it takes too long to see them. She has had colonoscopy w/in the past yr. and was told she has IBS and polyps. - History of Current Complaint Chief Complaint: UCRespiratory Stated Complaint: RIGHT SIDE RIB PAIN Time Seen by Provider: 12/25/18 15:18 Hx Obtained From: Patient Hx Last Menstrual Period: 12/22/18 Pain Intensity: 6 - Allergy/Home Medications Allergies/Adverse Reactions: Allergies Allergy/AdvReac Type Severity Reaction Status Date / Time No Known Allergies Allergy Verified 12/25/18 15:21 PMH/Surg Hx/FS Hx/Imm Hx Previously Healthy: Yes Endocrine History: Other - obesity GI/ History: Other - ibs Neurological History: Other - pituitary adenoma Other History Of: Negative For: Anticoagulant Therapy - Surgical History Surgical History: Yes Surgery Procedure, Year, and Place: 2008 tubal. tonsillectomy - Family History Known Family History: Negative: Cardiac Disease Family History: NON CONTRIBUTORY - Social History Alcohol Use: None Substance Use Type: None Substance Use Comment - Amount & Last Used: denies Smoking Status (MU): Heavy Every Day Tobacco Smoker Type: Cigarettes Amount Used/How Often: 1 pack every 2 days Household Exposure Type: Cigarettes - Immunization History Most Recent Influenza Vaccination: no Most Recent Tetanus Shot: UTD Vaccination Up to Date: Yes Review of Systems All Other Systems Reviewed And Are Negative: Yes Constitutional: Negative: Fever, Chills, Fatigue Skin: Negative: Rash Respiratory: Negative: Shortness Of Breath, Cough Gastrointestinal: Positive: Vomiting, Diarrhea. Negative: Abdominal Pain Genitourinary: Negative: Dysuria Neurological: Negative: Headache Physical Exam Triage Information Reviewed: Yes Appearance: Well-Appearing Vital Signs: Initial Vital Signs Temp 98.0 F 12/25/18 15:29 Pulse 88 12/25/18 15:29 Resp 20 12/25/18 15:29 BP 117/73 12/25/18 15:29 Pulse Ox 99 12/25/18 15:29 Vital Signs Reviewed: Yes Neck: Positive: Supple, Nontender, No Lymphadenopathy Respiratory: Positive: Lungs clear, Normal breath sounds, Other: - R rib tenderness but mild Cardiovascular Exam: Normal Abdomen Description: Positive: Nontender, Soft Neurological: Positive: Alert Skin: Negative: Rashes Diagnostics - Radiology No standard instances Radiology Interpretation Completed By: Radiologist Summary of Radiographic Findings: IMPRESSION: NO DISPLACED RIB FRACTURE OR PNEUMOTHORAX. IF THERE IS PERSISTENT CLINICAL CONCERN FOR OSSEOUS PATHOLOGY OF THE RIBS, BONE SCANNING MAY BE MORE SENSITIVE. Course/Dx - Course Course Of Treatment: R rib pain after coughing for a few wks. Cough resolved but R rib pain persisted. XRay showed no abnormalities. Could be gallbladder given some of her GI complaints and strongly recommended going to ED. She is afebrile. Her GI complaints also sound chronic and she already has GI involved. Strongly recommended reconnecting w/ them to discuss options and tx for her. - Differential Dx - Multi-Symptom Differential Diagnoses: Other - Diagnoses Provider Diagnosis: Rib pain on right side Discharge ED - Sign-Out/Discharge Documenting (check all that apply): Patient Departure All imaging exams completed and their final reports reviewed: Yes - Discharge Plan Condition: Good Disposition: HOME Patient Education Materials: Costochondritis (ED) Referrals: Vero Andujar MD [Primary Care Provider] - Additional Instructions: Although there is not a fracture you should see your pcp to further investigate pain. If pain persists please consider going to the Emergency Room to rule out other sources for pain. - Billing Disposition and Condition Condition: GOOD Disposition: Home
== END 2018-12-25 16:35 | disposition home or self-care (01) ==
LOC: UCCORT 14:47
DX: R07.81 Pleurodynia (principal); R05 Cough; M54.89 Other dorsalgia; R53.83 Other fatigue; F17.210 Nicotine dependence, cigarettes, uncomplicated; R11.2 Nausea with vomiting, unspecified
CPT/HCPCS: 99212; G0463